=== PATIENT | male | born 1995 | race Caucasian/White ===

== ENCOUNTER 2017-02-06 09:49 | Emergency (ER) | payer OTHER ==
[~2017-02-06] VITALS: Ht 165.1 cm; Wt 56.7 kg
[~2017-02-06 09:49] MED LIST: ABILIFY5 MG PO; ADDERALL XR20 MG PO; BENADRYL50 M1 PO; PROAIR HFA0.09 MG/Ac IH; QVAR HFA M40 MCG/ACT IH; TENEX2 MG PO
[2017-02-06 10:25] VITALS: BP 122/100
--- NOTE | 2017-02-06 11:02 | NUR ---
Patient being evaluated by physician in overflow.
[2017-02-06] MEDS ORDERED: KETOROLAC 60 MG/2 ML VIAL IM ONE (11:05)
[2017-02-06 11:30] VITALS: BP 122/100
--- NOTE | 2017-02-06 11:31 | NUR ---
Patient discharged with v/s stable. Written and verbal after care instructions given and explained. Patient alert, oriented and verbalized understanding of instructions. Ambulatory with steady gait. All questions addressed prior to discharge. ID band removed. Patient advised to follow up with PMD. Rx of MOTRIN AND AMOXICILLIN given. Patient educated on indication of medication including possible reaction and side effects. Opportunity to ask questions provided and answered.
== END 2017-02-06 11:31 | disposition home or self-care (01) ==
LOC: MED 09:49
DX: K04.7 Periapical abscess without sinus (principal); J45.909 Unspecified asthma, uncomplicated
CPT/HCPCS: 96372; 99283; J1885

== ENCOUNTER 2018-01-25 20:23 | Emergency (ER) | payer MEDICAID, OTHER ==
[~2018-01-25] VITALS: Ht 165.1 cm; Wt 61.2 kg
[~2018-01-25 20:23] MED LIST changes: -ABILIFY5 MG PO; -ADDERALL XR20 MG PO; +ALBU-136 IH; +AMPH20CE PO; +ARIP5TAB8 PO; +BECL0.0458 IH; -BENADRYL50 M1 PO; +GUAN2TAB21 PO; -PROAIR HFA0.09 MG/Ac IH; -QVAR HFA M40 MCG/ACT IH; -TENEX2 MG PO
[2018-01-25 20:28] VITALS: BP 134/70
--- NOTE | 2018-01-25 20:31 | NUR ---
TO [facility], AMBULATORY, A/W BED, VSS. EARLY NOTED
[2018-01-25 20:32] VITALS: BP 134/70
--- NOTE | 2018-01-25 20:40 | NUR ---
Lawrence perez in [facility] - 01/25/18 at 2253 by [email or web address] PATIENT LEFT WITHOUT BEING SEEN BY DR. MATIAS. NO FURTHER CARE PROVIDED FOR PATIENT.
--- NOTE | 2018-01-25 21:40 | NUR ---
PATIENT LEFT WITHOUT BEING SEEN BY DR. MATIAS. NO FURTHER CARE PROVIDED FOR PATIENT.
== END 2018-01-25 21:40 | disposition left against medical advice (07) ==
LOC: MED 20:23
DX: R51 Headache (principal); Z53.21 Procedure and treatment not carried out due to patient leaving prior to being seen by health care provider

== ENCOUNTER 2018-01-26 16:21 | Emergency (ER) | payer MEDICAID ==
[~2018-01-26] VITALS: Ht 165.1 cm; Wt 59.5 kg
[2018-01-26 16:28] VITALS: BP 145/63
--- NOTE | 2018-01-26 16:32 | NUR ---
PT AMBULATES TO BED 8, REPORT GIVEN TO DOMENIC PARSON
--- NOTE | 2018-01-26 16:40 | NUR ---
PATIENT PRESENTS TO ED WITH COMPLAINTS OF TOOTH PAIN. PATIENT STATES HE HAS AN ABCESS ON HIS UPPER RIGHT TOOTH. WAS SEEN BY A DENTIST BUT THE ANTIBIOTICS PRESRIBED DID NOT HELP. DENIES N/V/D; SKIN IS PINK/WARM/DRY; AAOX4 WITH EVEN AND STEADY GAIT; HR EVEN AND REGULAR; PT DENIES ANY FEVER, CP, SOB, OR COUGH AT THIS TIME; PATIENT STATES PAIN OF 10/10 AT THIS TIME; VSS; PATIENT POSITIONED FOR COMFORT; HOB ELEVATED; BEDRAILS UP X1; BED DOWN. ER MD MADE AWARE OF PT STATUS.
[2018-01-26] MEDS ORDERED: CLINDAMYCIN 600 MG/4 ML VIAL IM ONE (16:50)
[2018-01-26] MEDS ORDERED: KETOROLAC 60 MG/2 ML VIAL IM ONE (16:50)
--- NOTE | 2018-01-26 17:35 | NUR ---
PATIENT RECIEVED HIS ANTIBIOTICS AND HIS PAIN MEDICATION.
[2018-01-26 17:50] VITALS: BP 132/71
--- NOTE | 2018-01-26 17:50 | NUR ---
Patient discharged with v/s stable. Written and verbal after care instructions given and explained. Patient alert, oriented and verbalized understanding of instructions. Ambulatory with steady gait. All questions addressed prior to discharge. ID band removed. Patient advised to follow up with PMD. Rx of FIORECET AND CLINDAMYCIN given. Patient educated on indication of medication including possible reaction and side effects. Opportunity to ask questions provided and answered.
== END 2018-01-26 17:50 | disposition home or self-care (01) ==
LOC: MED 16:21
DX: K04.7 Periapical abscess without sinus (principal); J45.909 Unspecified asthma, uncomplicated; Z79.899 Other long term (current) drug therapy
CPT/HCPCS: 96372; 99284; J1885; J3490